=== PATIENT | female | born 1965 | race American Indian/Alaskan Native ===

== ENCOUNTER → 2017-04-30 | Outpatient (CLI) | payer OTHER ==
--- NOTE | 2017-04-30 19:13 | REP ---
LEFT WRIST, FOUR VIEWS: There is no evidence of an acute fracture, dislocation or intrinsic bone disease. IMPRESSION: No fracture or dislocation. Signed by Vladimir Gruber MD 05/01/2017 12:34 P
== END ==
LOC: M ADAMS 17:22
PROVIDERS: ATTEND Physician Assistant
DX: M25.532 Pain in left wrist (principal)

== ENCOUNTER → 2018-05-01 | Outpatient (REF) | payer BC | LOC: M LAB REF 15:59 | DX: M54.5 Low back pain (principal) ==

== ENCOUNTER → 2018-07-05 | Outpatient (REF) | payer BC | LOC: M SFHCADAM 19:31 | DX: Z12.4 Encounter for screening for malignant neoplasm of cervix (principal) | CPT/HCPCS: G0123 ==

== ENCOUNTER 2018-07-30 09:54 | Day surgery (SDC) | payer BC ==
[2018-07-30] MEDS: NS 1,000 ML IV (11:30)
[2018-07-30] MEDS ORDERED: LIDOCAINE 2% INJ 100 MG/5 ML SDV (FOR ANES.) As Ordered (11:51)
[2018-07-30] MEDS ORDERED: PROPOFOL 200 MG/20 ML VIAL As Ordered ×2 (11:51→12:01)
== END 2018-07-30 12:34 | disposition home or self-care (01) ==
LOC: M OPP 12:34
DX: Z12.11 Encounter for screening for malignant neoplasm of colon (principal)
CPT/HCPCS: 45378

== ENCOUNTER 2018-10-09 15:31 | Emergency (ER) | payer OTHER, BC ==
[~2018-10-09] VITALS: Ht 167.6 cm; Wt 77.3 kg
[~2018-10-09 15:31] MED LIST: ALEV220T26 PO; BIOT2500 PO; ESTRTAB11 PO; FOLI800C PO; GARC500T PO; MULTCAP PO; VARE05TA PO; VITA500T3 PO; ZANTTAB PO
--- NOTE | 2018-10-09 18:28 | REP ---
RIGHT ANKLE, FOUR VIEWS: HISTORY: Trauma. There is no acute fracture or dislocation. The joint space is normal in appearance. IMPRESSION: There is no acute fracture or dislocation. Electronically Signed by Nicholas Collins MD 10/09/2018 06:37 P
[2018-10-09] MEDS ORDERED: ROBA500T PO (18:30)
[2018-10-09 18:45] VITALS: BP 108/76
== END 2018-10-09 18:46 | disposition home or self-care (01) ==
LOC: M ED 15:31
DX: S93.401A Sprain of unspecified ligament of right ankle, initial encounter (principal); X50.1XXA Overexertion from prolonged static or awkward postures, initial encounter; Y92.9 Unspecified place or not applicable

== ENCOUNTER 2019-09-14 10:51 | Emergency (ER) | payer BC, OTHER ==
[~2019-09-14] VITALS: Ht 167.6 cm; Wt 76.3 kg
[~2019-09-14 10:51] MED LIST changes: +CYAN500T8 PO; +ROBA500T PO; -VITA500T3 PO; +ZANT150T40 PO; -ZANTTAB PO
[2019-09-14 11:57] LABS: BASO # 0.1 10^3/uL (0.0-0.2); BASO % 0.8 % (0.0-1.0); EOS # 0.1 10^3/uL (0.0-0.5); EOS % 1.3 % (0.0-3.0); HEMATOCRIT 42.3 % (36.0-47.0); HEMOGLOBIN 13.9 g/dl (12.0-15.5); LYMPH # 2.5 10^3/uL (1.5-5.0); LYMPH % 38.8 % (24.0-44.0); MEAN CORPUSCULAR HGB CONC 32.9 g/dl (32.0-36.5); MEAN CORPUSCULAR VOLUME 94.4 fl (80.0-96.0); MONO # 0.5 10^3/uL (0.0-0.8); MONO % 7.4 % (0.0-5.0); NEUTROPHILS # 3.3 10^3/uL (1.5-8.5); NEUTROPHILS % 51.4 % (36.0-66.0); PLATELET COUNT, AUTOMATED 255 10^3/uL (150-450); RED BLOOD COUNT 4.48 10^6/uL (4.00-5.40); WHITE BLOOD COUNT 6.4 10^3/uL (4.0-10.0)
[2019-09-14] MEDS ORDERED: NS 1,000 ML IV SCH (12:18)
[2019-09-14 12:25] LABS: ALBUMIN 3.7 GM/DL (3.2-5.2); ALT/SGPT 37 U/L (12-78); BILIRUBIN,DIRECT < 0.1 MG/DL (0.0-0.2); BILIRUBIN,TOTAL 0.4 MG/DL (0.2-1.0); BLOOD UREA NITROGEN 12 MG/DL (7-18); CARBON DIOXIDE LEVEL 27 MEQ/L (21-32); CHLORIDE LEVEL 108 MEQ/L (98-107); CREATININE FOR GFR 0.74 MG/DL (0.55-1.30); GLOMERULAR FILTRATION RATE > 60.0 (>51); GLUCOSE, FASTING 89 MG/DL (70-100); LIPASE 88 U/L (73-393); POTASSIUM SERUM 4.1 MEQ/L (3.5-5.1); SODIUM LEVEL 141 MEQ/L (136-145); TOTAL PROTEIN 6.7 GM/DL (6.4-8.2)
[2019-09-14] MEDS ORDERED: MORPHINE 2 MG/ML 1ML VIAL (J2270) IV ONE (12:30)
[2019-09-14] MEDS ORDERED: ONDANSETRON 4MG/2ML VIAL (J2405) IV ONE (12:30)
[2019-09-14 12:55] LABS: INR 1.01
--- NOTE | 2019-09-14 13:08 | REP ---
Clinical: Right lower quadrant pain. Technique: Axial noncontrast images from the lung bases to the pubic symphysis with coronal and sagittal re-formations. Findings: Lung bases are clear. Visualized heart and pericardium normal. Liver, spleen, pancreas, gallbladder, bilateral adrenal glands and kidneys are normal. The enteric system is without obstruction or acute inflammatory process. Normal terminal ileum, cecum and appendix identified in the right lower quadrant. Few scattered colonic diverticula noted without acute diverticulitis. Pelvis demonstrates normal bladder and age-appropriate uterus/adnexa. No ascites. No free air. No adenopathy. Abdominal aorta without aneurysm. Musculoskeletal structures are intact. Impression: No acute abdominopelvic pathology appreciated. Normal appearance to the kidneys. Normal right lower quadrant structures including appendix. Electronically Signed by Oliverio Gamboa MD 09/14/2019 01:00 P
[2019-09-14 13:46] VITALS: BP 106/64
--- NOTE | 2019-09-14 15:54 | ECGEPIP ---
[facility] - ED Test Date: 2019-09-14 Pat Name: LARNO WELCH Department: Room: - Gender: Female [employer] Consult[employer]: yareli : 1965 Requested By: ROX DOSS Order Number: [id number] Reading MD: Wander Martínez Measurements Intervals [place] Rate: 58 P: 72 W[place]: 137 QRS: 70 QRSD: 97 T: 67 QT: 435 QTc: 428 Interpretive Statements SINUS BRADYCARDIA INCOMPLETE RIGHT BUNDLE BRANCH BLOCK NO PRIORS FOR COMPARISON Electronically Signed on 09-14-2019 15:54:18 EST by Wander Martínez
== END 2019-09-14 13:52 | disposition home or self-care (01) ==
LOC: M ED 10:51
DX: R10.9 Unspecified abdominal pain (principal); I45.19 Other right bundle-branch block; R00.1 Bradycardia, unspecified; G89.4 Chronic pain syndrome; F17.200 Nicotine dependence, unspecified, uncomplicated; Z82.49 Family history of ischemic heart disease and other diseases of the circulatory system; Z79.899 Other long term (current) drug therapy; Z88.0 Allergy status to penicillin
CPT/HCPCS: 74176; 80048; 80076; 81001; 83690; 85025; 85610; 86850; 86900; 86901; 93005; 99284; J2270; J2405

== ENCOUNTER → 2019-09-15 | Outpatient (CLI) | payer OTHER ==
--- NOTE | 2019-09-15 14:34 | REPPI ---
Clinical: Fall. Pain. Technique: Neutral and frog lateral views of the right hip. Findings: Osseous structures, joint spaces, and surrounding soft tissues appear normal. No obvious acute fracture dislocation. No overt osteoarthritic degenerative findings noted. Surrounding soft tissues are unremarkable. Impression: Normal right hip radiographs. Electronically Signed by Oliverio Gamboa MD 09/15/2019 02:26 P
--- NOTE | 2019-09-15 14:36 | REPPI ---
Clinical: Trauma. Fall. Technique: AP, lateral, bilateral oblique and coned-down views of the lumbosacral spine. Findings: Alignment and lordosis maintained without acute fracture / compression injury or subluxation. Advanced focal degenerative disc osteophyte complex at L4-5 includes endplate sclerosis, marginal spurring, and near complete disc space obliteration. Moderate degenerative changes also appreciated at the L5-S1 level. Impression: 1. No acute fracture / compression injury or subluxation. 2. Degenerative disc disease at L4-5 and L5-S1. Electronically Signed by Oliverio Gamboa MD 09/15/2019 02:27 P
== END ==
LOC: M PLAIMG 13:57
PROVIDERS: ATTEND Nurse Practitioner Family
DX: R10.31 Right lower quadrant pain (principal); Z91.81 History of falling; M51.36 Other intervertebral disc degeneration, lumbar region

== ENCOUNTER → 2020-03-01 | Outpatient (REF) | payer OTHER ==
[2020-03-01 13:42] LABS: CHOLESTEROL RISK RATIO 3.803 (<5)
== END ==
LOC: M SFHCADAM 08:27
PROVIDERS: ATTEND Physician Assistant
DX: E78.00 Pure hypercholesterolemia, unspecified (principal)

== ENCOUNTER → 2020-08-05 | Outpatient (CLI) | payer OTHER ==
[~2020-08-05] MED LIST changes: +PRIL20TA2 PO
[2020-08-05 11:45] LABS: BASO % 0.4 % (0.0-1.0); EOS % 0.6 % (0.0-3.0); HEMATOCRIT 43.9 % (36.0-47.0); HEMOGLOBIN 14.2 g/dl (12.0-15.5); LYMPH # 2.3 10^3/uL (1.5-5.0); LYMPH % 42.5 % (24.0-44.0); MEAN CORPUSCULAR HEMOGLOBIN 29.6 pg (27.0-33.0); MEAN CORPUSCULAR HGB CONC 32.3 g/dl (32.0-36.5); MEAN CORPUSCULAR VOLUME 91.5 fl (80.0-96.0); MONO # 0.5 10^3/uL (0.0-0.8); MONO % 9.6 % (0.0-5.0); NEUTROPHILS # 2.5 10^3/uL (1.5-8.5); NEUTROPHILS % 46.7 % (36.0-66.0); PLATELET COUNT, AUTOMATED 228 10^3/uL (150-450); WHITE BLOOD COUNT 5.4 10^3/uL (4.0-10.0)
[2020-08-05 12:17] LABS: ALBUMIN 4.1 GM/DL (3.2-5.2); ALT/SGPT 59 U/L (12-78); BILIRUBIN,TOTAL 0.4 MG/DL (0.2-1.0); BLOOD UREA NITROGEN 12 MG/DL (7-18); CALCIUM LEVEL 9.1 MG/DL (8.5-10.1); CARBON DIOXIDE LEVEL 30 MEQ/L (21-32); CHLORIDE LEVEL 109 MEQ/L (98-107); CREATININE FOR GFR 0.77 MG/DL (0.55-1.30); GLOMERULAR FILTRATION RATE > 60.0 (>51); GLUCOSE, FASTING 90 MG/DL (70-100); LIPASE 81 U/L (73-393); POTASSIUM SERUM 4.4 MEQ/L (3.5-5.1); SODIUM LEVEL 143 MEQ/L (136-145); TOTAL PROTEIN 7.4 GM/DL (6.4-8.2)
== END ==
LOC: M PLALAB 09:59
PROVIDERS: ATTEND Physician Assistant
DX: R10.11 Right upper quadrant pain (principal)

== ENCOUNTER → 2020-08-05 | Outpatient (CLI) | payer OTHER ==
--- NOTE | 2020-08-05 11:13 | REP ---
INDICATION: R10.11 RUQ PAIN/R10.13 EPIGASTRIC PAIN COMPARISON: None. TECHNIQUE: Real time moses scale ultrasound examination using curved array transducer. FINDINGS: Liver is normal in contour, size, and echogenicity without focal hepatic lesions identified. Pancreas is incompletely evaluated due to interposed bowel gas. The gallbladder demonstrates normal wall thickening without pericholecystic fluid and no obvious gallstones. No biliary ductal dilatation is appreciated and the common bile duct measures 2.3 mm diameter. Right kidney is normal in reniform shape without hydronephrosis and measures 9.4 x 7.1 x 5.6 cm. No ascites in the visualized right upper quadrant. IMPRESSION: No obvious sonographic abnormalities are appreciated. <Electronically signed by Oliverio Gamboa > 08/05/20 1511
== END ==
LOC: M WHC 10:20
PROVIDERS: ATTEND Physician Assistant
DX: R10.11 Right upper quadrant pain (principal); R10.13 Epigastric pain

== ENCOUNTER 2020-08-06 11:18 | Emergency (ER) | payer OTHER ==
[~2020-08-06] VITALS: Ht 167.6 cm; Wt 83.3 kg
[~2020-08-06 11:18] MED LIST changes: -PRIL20TA2 PO
[2020-08-06] MEDS ORDERED: PRIL20TA2 PO (11:27)
[2020-08-06 11:57] LABS: BASO % 0.3 % (0.0-1.0); EOS # 0.1 10^3/uL (0.0-0.5); EOS % 0.8 % (0.0-3.0); HEMATOCRIT 44.6 % (36.0-47.0); HEMOGLOBIN 14.8 g/dl (12.0-15.5); LYMPH # 2.9 10^3/uL (1.5-5.0); LYMPH % 47.6 % (24.0-44.0); MEAN CORPUSCULAR HEMOGLOBIN 30.5 pg (27.0-33.0); MEAN CORPUSCULAR HGB CONC 33.2 g/dl (32.0-36.5); MONO # 0.5 10^3/uL (0.0-0.8); NEUTROPHILS # 2.6 10^3/uL (1.5-8.5); PLATELET COUNT, AUTOMATED 238 10^3/uL (150-450); RED BLOOD COUNT 4.85 10^6/uL (4.00-5.40)
[2020-08-06 12:29] LABS: BILIRUBIN,DIRECT 0.1 MG/DL (0.0-0.2); BILIRUBIN,TOTAL 0.3 MG/DL (0.2-1.0); TOTAL PROTEIN 7.1 GM/DL (6.4-8.2)
[2020-08-06 12:44] LABS: INR 0.91; PROTHROMBIN TIME 12.4 SECONDS (12.5-14.3)
[2020-08-06 12:45] LABS: PARTIAL THROMBOPLASTIN TIME 25.1 SECONDS (24.2-38.5)
[2020-08-06] MEDS ORDERED: KETOROLAC 30 MG/ML 1ML VIAL IV ONE (12:45)
[2020-08-06] MEDS ORDERED: NS 1,000 ML IV ONE (12:45)
[2020-08-06 12:48] LABS: D-DIMER QUANT 419.6 ng/ml (<500)
--- NOTE | 2020-08-06 13:16 | REP ---
INDICATION: RUQ pain. COMPARISON: 08/05/2020. TECHNIQUE: Real-time sonographic evaluation of right upper quadrant performed. FINDINGS: The gallbladder demonstrates no evidence of intraluminal sludge or calculi, wall thickening or pericholecystic fluid. There is no intrahepatic or extrahepatic biliary dilatation, common bile duct measures 3 mm in maximum diameter. The liver is enlarged measuring 20.8 cm in length. There is diffuse increased echotexture compatible with diffuse fibrofatty infiltration, with areas of sparing near the gallbladder. No gross liver mass is seen. Pancreas is grossly unremarkable but not optimally visualized due to overlying bowel gas. The right kidney demonstrates no hydronephrosis, with a normal size of 9.7 cm in length. No free fluid is seen. IMPRESSION: Mild hepatomegaly and diffuse fibrofatty infiltration of the liver. Otherwise negative right upper quadrant ultrasound. <Electronically signed by Vladimir Gruber > 08/06/20 1312
--- NOTE | 2020-08-06 14:12 | REP ---
INDICATION: pain with inspiration r/o pneumonia. COMPARISON: 03/09/2014 the latest prior TECHNIQUE: PA and lateral views FINDINGS: The superior mediastinal structures are midline. The cardiac silhouette is unremarkable in size, shape, and position. The diaphragmatic surfaces of the lungs are regular, and the costophrenic angles are clear. The pulmonary leslie are clear. The imaged osseous structures are intact. IMPRESSION: There is no acute cardiopulmonary disease. No change from the prior exam. <Electronically signed by Armaan Ramirez > 08/06/20 1290
[2020-08-06 14:22] VITALS: BP 123/78
== END 2020-08-06 14:32 | disposition home or self-care (01) ==
LOC: M ED 11:18
DX: K76.0 Fatty (change of) liver, not elsewhere classified (principal); R10.9 Unspecified abdominal pain; J44.9 Chronic obstructive pulmonary disease, unspecified; Z87.891 Personal history of nicotine dependence; Z79.899 Other long term (current) drug therapy; Z88.0 Allergy status to penicillin
CPT/HCPCS: 71046; 76705; 80047; 80076; 81001; 83690; 85025; 85379; 85610; 85730; 96361; 96374; 99284; J1885

== ENCOUNTER → 2020-12-10 | Outpatient (CLI) | payer OTHER ==
[~2020-12-10] MED LIST changes: +CYAN500T14 PO; -CYAN500T8 PO; +PRIL20TA2 PO
--- NOTE | 2020-12-10 10:22 | REP ---
INDICATION: GB DISEASE, RUQ PAIN, NAUSEA. COMPARISON: None. TECHNIQUE/RADIOTRACER AND DOSE: 6.6 mCi of Technetium-99m mebrofenin was injected and sequential anterior images are acquired. 65 minutes after the mebrofenin injection, the patient consumed 8 ounces Ensure and an additional 60 minutes of imaging was acquired. Regions of interest are plotted around the gallbladder. FINDINGS: The initial hepatocellular parenchymal uptake phase is normal and homogeneous. Intra- and extra-hepatic bile ducts are labeled by the 10-minute image. The gallbladder is first labeled on the 10-minute image. There is normal washout from the liver parenchyma into the gallbladder and small intestine on subsequent images. The gallbladder ejection fraction is 63%. Values greater than 35% are considered normal with this technique. IMPRESSION: Normal hepatobiliary scan and normal gallbladder ejection fraction. <Electronically signed by Jeff Saha > 12/10/20 1017
== END ==
LOC: M RAD 07:31
PROVIDERS: ATTEND Internal Medicine Gastroenterology
DX: K82.8 Other specified diseases of gallbladder (principal); R10.11 Right upper quadrant pain; R11.0 Nausea
CPT/HCPCS: 78227; A9537

== ENCOUNTER → 2020-12-29 | Outpatient (CLI) | payer OTHER | LOC: M LABSMTC 11:56 | PROVIDERS: ATTEND Anesthesiology | DX: Z01.812 Encounter for preprocedural laboratory examination (principal); Z20.822 Contact with and (suspected) exposure to COVID-19 ==

== ENCOUNTER 2021-01-03 13:46 | Day surgery (SDC) | payer OTHER ==
[~2021-01-03] VITALS: Ht 167.6 cm; Wt 86.6 kg
[~2021-01-03 13:46] MED LIST changes: +NS 1,000 ML IV ONE
[2021-01-03] MEDS ORDERED: LIDOCAINE 2% 100MG/5ML SDV (FOR ANES.) As Ordered ONE (16:14)
[2021-01-03] MEDS ORDERED: propofoL 200 MG/20 ML VIAL As Ordered ONE (16:14)
--- NOTE | 2021-01-03 16:21 | ROOR ---
Patient Name: Sadia Shaffer Procedure Date: 01/03/2021 4:09 PM Date of : 1965 Age: 55 Room: [facility] Gender: Female Note Status: Finalized Procedure: Upper GI endoscopy Indications: Heartburn, Chest pain (non cardiac) Providers: Claudio FELDMAN MD Referring MD: EVARISTO Vásquez Requesting Provider: Medicines: Monitored Anesthesia Care Complications: No immediate complications. Procedure: Pre-Anesthesia Assessment: - The heart rate, respiratory rate, oxygen saturations, blood pressure, adequacy of pulmonary ventilation, and response to care were monitored throughout the procedure. The Endoscope was introduced through the mouth, and advanced to the second part of duodenum. The upper GI endoscopy was accomplished without difficulty. The patient tolerated the procedure well. Findings: The esophagus was normal. The stomach was normal. The examined duodenum was normal. Impression: - Normal esophagus. - Normal stomach. - Normal examined duodenum. - No specimens collected. Recommendation: - Continue present medications. - Observe patient's clinical course. Procedure Code(s): --- Professional --- 50166, Esophagogastroduodenoscopy, flexible, transoral; diagnostic, including collection of specimen(s) by brushing or washing, when performed (separate procedure) Diagnosis Code(s): --- Professional --- R12, Heartburn R07.89, Other chest pain CPT copyright 2019 [employer]. All rights reserved. The codes documented in this report are preliminary and upon medical coder review may be revised to meet current compliance requirements. Claudio Feldman MD Claudio FELDMAN MD 01/03/2021 4:21:17 PM Electronically signed by Claudio FELDMAN MD Number of Addenda: 0 Note Initiated On: 01/03/2021 4:09 PM Estimated Blood Loss: Estimated blood loss: none.
[2021-01-03 16:50] VITALS: BP 134/73
== END 2021-01-03 17:00 | disposition home or self-care (01) ==
LOC: M OPP 13:46
PROVIDERS: ATTEND Internal Medicine Gastroenterology
DX: R07.89 Other chest pain (principal); K21.9 Gastro-esophageal reflux disease without esophagitis; K76.0 Fatty (change of) liver, not elsewhere classified; J44.9 Chronic obstructive pulmonary disease, unspecified; G47.30 Sleep apnea, unspecified; Z87.891 Personal history of nicotine dependence; Z79.899 Other long term (current) drug therapy; Z88.0 Allergy status to penicillin

== ENCOUNTER 2021-07-24 11:54 | Emergency (ER) | payer OTHER ==
[~2021-07-24] VITALS: Ht 167.6 cm; Wt 83.6 kg
[~2021-07-24 11:54] MED LIST changes: -NS 1,000 ML IV ONE
--- OUTSIDE RECORDS SUMMARY | 2021-07-24 12:03 | CCD ---
Author Author [facility] Organization [facility] Address Unknown Phone Unavailable Care Team Providers Care Hand I Thermal Cutter Name Role Phone Garcia, Nicole COMMAND AND CONTROL SYSTEMS INTEGRATOR Unavailable Unavailable Garcia, Nicole COMMAND AND CONTROL SYSTEMS INTEGRATOR Unavailable Unavailable Garcia, Nicole COMMAND AND CONTROL SYSTEMS INTEGRATOR Unavailable Unavailable Garcia, Nicole COMMAND AND CONTROL SYSTEMS INTEGRATOR Unavailable Unavailable Garcia, Nicole COMMAND AND CONTROL SYSTEMS INTEGRATOR Unavailable Unavailable Garcia, Nicole COMMAND AND CONTROL SYSTEMS INTEGRATOR Unavailable Unavailable Garcia, Nicole COMMAND AND CONTROL SYSTEMS INTEGRATOR Unavailable Unavailable Garcia, Nicole COMMAND AND CONTROL SYSTEMS INTEGRATOR Unavailable Unavailable Garcia, Nicole COMMAND AND CONTROL SYSTEMS INTEGRATOR Unavailable Unavailable Garcia, Nicole COMMAND AND CONTROL SYSTEMS INTEGRATOR Unavailable Unavailable Garcia, Nicole COMMAND AND CONTROL SYSTEMS INTEGRATOR Unavailable Unavailable Garcia, Nicole COMMAND AND CONTROL SYSTEMS INTEGRATOR Unavailable Unavailable Garcia, Nicole COMMAND AND CONTROL SYSTEMS INTEGRATOR Unavailable Unavailable PARISA FELDMAN MD Unavailable Unavailable PARISA FELDMAN MD Unavailable Unavailable PARISA FELDMAN MD Unavailable Unavailable PARISA FELDMAN MD Unavailable Unavailable PARISA FELDMAN MD Unavailable Unavailable REINDL, PARISA VALENCIA Unavailable Unavailable REINDL, PARISA VALENCIA Unavailable Unavailable REINDL, PARISA VALENCIA Unavailable Unavailable REINDL, PARISA VALENCIA Unavailable Unavailable REINDL, PARISA VALENCIA Unavailable Unavailable REINDL, PARISA VALENCIA Unavailable Unavailable REINDL, PARISA VALENCIA Unavailable Unavailable REINDL, PARISA VALENCIA Unavailable Unavailable REINDL, PARISA VALENCIA Unavailable Unavailable REINDL, PARISA VALENCIA Unavailable Unavailable REINDL, PARISA VALENCIA Unavailable Unavailable REINDL, PARISA VALENCIA Unavailable Unavailable REINDL, PARISA VALENCIA Unavailable Unavailable REINDL, PARISA VALENCIA Unavailable Unavailable REINDL, PARISA VALENCIA Unavailable Unavailable REINDL, PARISA VALENCIA Unavailable Unavailable REINDL, PARISA VALENCIA Unavailable Unavailable REINDL, PARISA VALENCIA Unavailable Unavailable REINDL, PARISA VALENCIA Unavailable Unavailable REINDL, PARISA VALENCIA Unavailable Unavailable REINDL, PARISA VALENCIA Unavailable Unavailable REINDL, PARISA VALENCIA Unavailable Unavailable REINDL, PARISA VALENCIA Unavailable Unavailable REINDL, PARISA VALENCIA Unavailable Unavailable REINDL, PARISA VALENCIA Unavailable Unavailable REINDL, PARISA VALENCIA Unavailable Unavailable REINDL, PARISA VALENCIA Unavailable Unavailable REINDL, PARISA VALENCIA Unavailable Unavailable REINDL, PARISA VALENCIA Unavailable Unavailable REINDL, PARISA VALENCIA Unavailable Unavailable REINDL, PARISA VALENCIA Unavailable Unavailable REINDL, PARISA VALENCIA Unavailable Unavailable REINDL, PARISA VALENCIA Unavailable Unavailable REINDL, PARISA VALENCIA Unavailable Unavailable REINDL, PARISA VALENCIA Unavailable Unavailable REINDL, PARISA VALENCIA Unavailable Unavailable REINDL, PARISA VALENCIA Unavailable Unavailable NEVILLE, DARY PA Unavailable Unavailable NEVILLE, DARY PA Unavailable Unavailable NEVILLE, DARY PA Unavailable Unavailable NEVILLE, DARY PA Unavailable Unavailable NEVILLE, DARY PA Unavailable Unavailable NEVILLE, DARY PA Unavailable Unavailable NEVILLE, DARY PA Unavailable Unavailable NEVILLE, DARY PA Unavailable Unavailable NEVILLE, DARY PA Unavailable Unavailable NEVILLE, DARY PA Unavailable Unavailable NEVILLE, DARY PA Unavailable Unavailable NEVILLE, DARY PA Unavailable Unavailable NEVILLE, DARY PA Unavailable Unavailable NEVILLE, DARY PA Unavailable Unavailable NEVILLE, DARY PA Unavailable Unavailable NEVILLE, DARY PA Unavailable Unavailable NEVILLE, DARY PA Unavailable Unavailable NEVILLE, DARY PA Unavailable Unavailable NEVILLE, DARY PA Unavailable Unavailable NEVILLE, DARY PA Unavailable Unavailable NEVILLE, DARY PA Unavailable Unavailable NEVILLE, DARY PA Unavailable Unavailable NEVILLE, DARY PA Unavailable Unavailable NEVILLE, DARY PA Unavailable Unavailable NEVILLE, DARY PA Unavailable Unavailable NEVILLE, DARY PA Unavailable Unavailable NEVILLE, DARY PA Unavailable Unavailable NEVILLE, DARY PA Unavailable Unavailable NEVILLE, DARY PA Unavailable Unavailable NEVILLE, DARY PA Unavailable Unavailable NEVILLE, DARY PA Unavailable Unavailable NEVILLE, ADRY PA Unavailable Unavailable NEVILLE, DARY PA Unavailable Unavailable NEVILLE, DARY PA Unavailable Unavailable NEVILLE, DARY PA Unavailable Unavailable NEVILLE, DARY PA Unavailable Unavailable Re-disclosure Warning The records that you are about to access may contain information from federally-assisted alcohol or drug abuse programs. If such information is present, then the following federally mandated warning applies: This information has been disclosed to you from records protected by federal confidentiality rules (42 CFR part 2). The federal rules prohibit you from making any further disclosure of this information unless further disclosure is expressly permitted by the written consent of the person to whom it pertains or as otherwise permitted by 42 CFR part 2. A general authorization for the release of medical or other information is NOT sufficient for this purpose. The Federal rules restrict any use of the information to criminally investigate or prosecute any alcohol or drug abuse patient.The records that you are about to access may contain highly sensitive health information, the redisclosure of which is protected by Article 27-F of the [facility] Public Health law. If you continue you may have access to information: Regarding HIV / AIDS; Provided by facilities licensed or operated by the [facility] Office of Mental Health; or Provided by the [facility] Office for People With Developmental Disabilities. If such information is present, then the following [facility] mandated warning applies: This information has been disclosed to you from confidential records which are protected by state law. State law prohibits you from making any further disclosure of this information without the specific written consent of the person to whom it pertains, or as otherwise permitted by law. Any unauthorized further disclosure in violation of state law may result in a fine or nursing home sentence or both. A general authorization for the release of medical or other information is NOT sufficient authorization for further disc losure. Family History Family Member Name Family Member Gender Family Member Status Date o f Status Description Data Source(s) Unknown Unknown Problem [facility] ([facility]) BROTHER Unknown Male Problem MEDENT ([facility]) Unknown Male Problem MED[facility] ([facility]) Encounters Encounter Providers Location Date Indications Data Source(s ) Unknown [address] [facility] [address] 11/25/2020 12:00:00 AM EST eCW1 ([facility]) Outpatient Attender: PARISA Anedrson/Irineo/Crow/Benjamin small 11/11/2020 09:45:00 AM EST [facility] ([facility]) TeleMedicine Phone E/M by Phys 11-20 Min [address] [place] [address] 08/31/2020 12:00:00 AM EST eCW1 ([facility]) Outpatient Attender: DARY barros 08/05/2020 07:15:00 AM EST MED[facility] ([facility]) Outpatient Attender: Nicole wynne 06/04/2020 10:45:00 AM EDT MED[facility] ([facility]) Immunizations Vaccine Date Status Description Data Source(s) COVID-19 VACC, MRNA(PFIZER)/PF 02/25/2021 12:00:00 AM EDT completed [facility] COVID-19 VACCINE Pfizer 02/25/2021 12:00:00 AM EDT completed [facility] Vaccine Series Complete: YESThis Data wa s Submitted to [facility] Via [employer]. COVID-19 VACC, MRNA(PFIZER)/PF 02/04/2021 12:00:00 AM EDT completed [facility] COVID-19 VACCINE Pfizer 02/04/2021 12:00:00 AM EDT completed [facility] Vaccine Series Complete: NOThis Data was Submitted to [facility] [employer]. Medications Medication Brand Name Start Date Product Form Dose Route Admi nistrative Instructions Pharmacy Instructions Status Indications Reaction Description Data Source(s) 40 mg 11/26/2020 12:00:00 AM EST capsule,delayed release (DR/EC) 60 TAKE ONE CAPSULE BY MOUTH TWICE A DAY BEFORE MEALS TAKE ONE CAPSULE BY MOUTH TWICE A DAY BEFORE MEALS SOLD: 06/28/2021 [facility] 1 gram 11/26/2020 12:00:00 AM EST tablet 90 TAKE ONE TABLET BY MOUTH THREE TIMES A DAY 30 MIN BEFORE MEALS TAKE ONE TABLET BY MOUTH THREE TIMES A D AY 30 MIN BEFORE MEALS SOLD: 04/27/2021 [facility] 40 mg 11/26/2020 12:00:00 AM EST capsule,delayed release (DR/EC) 60 TAKE ONE CAPSULE BY MOUTH TWICE A DAY BEFORE MEALS TAKE ONE CAPSULE BY MOUTH TWICE A DAY BEFORE MEALS SOLD: 11/27/2020 [facility] 40 mg 11/26/2020 12:00:00 AM EST capsule,delayed release (DR/EC) 60 TAKE ONE CAPSULE BY MOUTH TWICE A DAY BEFORE MEALS TAKE ONE CAPSULE BY MOUTH TWICE A DAY BEFORE MEALS SOLD: 01/29/2021 [facility] 1 gram 11/26/2020 12:00:00 AM EST tablet 90 TAKE ONE TABLET BY MOUTH THREE TIMES A DAY 30 MIN BEFORE MEALS TAKE ONE TABLET BY MOUTH THREE TIMES A D AY 30 MIN BEFORE MEALS SOLD: 01/29/2021 [facility] 1 gram 11/26/2020 12:00:00 AM EST tablet 90 TAKE ONE TABLET BY MOUTH THREE TIMES A DAY 30 MIN BEFORE MEALS TAKE ONE TABLET BY MOUTH THREE TIMES A D AY 30 MIN BEFORE MEALS SOLD: 11/27/2020 [facility] 40 mg 11/26/2020 12:00:00 AM EST capsule,delayed release (DR/EC) 60 TAKE ONE CAPSULE BY MOUTH TWICE A DAY BEFORE MEALS TAKE ONE CAPSULE BY MOUTH TWICE A DAY BEFORE MEALS SOLD: 04/27/2021 [facility] 40 mg 09/18/2020 12:00:00 AM EST capsule,delayed release (DR/EC) 60 TAKE 1 CAPSULE BY MOUTH BID30 MINUTES BEFORE MEAL TAKE 1 CAPSULE BY MOUTH BID30 MINUTES BEFORE MEAL SOLD: 09/18/2020 [facility] 1 gram 09/18/2020 12:00:00 AM EST tablet 90 TAKE 1 TABLET BY MOUTH ON A EMPTY STOMACH 30 MINUTES BEFORE EACH MEAL TAKE 1 TABLET BY MOUTH ON A EMPTY STOMACH 30 MINUTES BEFORE EACH MEAL SOLD: 09/18/2020 [facility] Prilosec 40 MG UNK 08/10/2020 12:00:00 AM EST active Prilosec 40 MG eCW1 ([facility]) Sucralfate 1000 MG Oral Tablet Sucralfate 1 GM Sucralfate 1 GM 08/10/2020 12:00:00 AM EST 1.0 {tablet_on_an_empty_stomach} active Sucralfate 1 GM eCW1 ([facility]) 40 mg 08/10/2020 12:00:00 AM EST capsule,delayed release (DR/EC) 60 TAKE 1 CAPSULE BY MOUTH TWO TIMES A DAY 30 MINUTES BEFORE MORNING MEAL TAKE 1 CAPSULE BY MOUTH TWO TIMES A DAY 30 MINUTES BEFORE MORNING MEAL SOLD: 08/10/2020 [facility] Pril[facility]c 40 MG UNK 08/10/2020 12:00:00 AM EST active Prilosec 40 MG eCW1 ([facility]) 1 gram 08/10/2020 12:00:00 AM EST tablet 90 TAKE 1 TABLET BY MOUTH ON EMPTY STOMACH 30 MINUTES BEFORE EACH MEAL TAKE 1 TABLET BY MOUTH ON EMPTY STOMACH 30 MINUTES BEFORE EACH MEAL SOLD: 08/10/2020 [facility] Sucralfate 1000 MG Oral Tablet Sucralfate 1 GM Sucralfate 1 GM 08/10/2020 12:00:00 AM EST 1.0 {tablet_on_an_empty_stomach} active Sucralfate 1 GM eCW1 ([facility]) Doxycycline Monohydrate 100 MG Oral Tablet Doxycycline Monoh ydrate 06/04/2020 12:00:00 AM EDT ORAL completed MEDENT ([facility] 100 mg 06/04/2020 12:00:00 AM EDT tablet 20 TAKE ONE TABLET BY MOUTH TWICE A DAY FOR 10 DAYS TAKE ONE TABLET BY MOUTH TWICE A DAY FOR 10 DAYS SOLD: 06/04/2020 [facility] Insurance Providers Payer name Policy type / Coverage type Policy ID Covered constitution party ID Covered constitution party's relationship to leary Policy Leary Plan Information [employer] () Workers Compensation [id number] Self [id number] El Insurance () Workers Compensation [id number] Self [id number] [employer] Insurance Workers Compensation [id number] Self [id number] El Ins And Benefit () Workers Compensation [id number] Self [id number] [place] Insurance (WC) Workers Compensation [id number] Self [id number] [employer] Workers Compensation [id number] Self [id number] [employer] Ins And Benefit (WC) Workers Compensation [id number] Self [id number] [place] [employer] And Benefit (WC) Workers Compensation [id number] Self [id number] BLUE CROSS [id number] SP [id number] BS [facility] Other 0 [id number] Self 0 ANSI-Commercial [id number] ANSI-Commercial [id number] [facility]/307 [id number] SP [id number] BLUE CROSS OTHER 1 [id number] SP [id number] [facility] BCBS Health Maintenance Organization (HMO) [id number] Self [id number] ANSI-Commercial [id number] ANSI-Commercial [id number] BCBS/Blue Card Commercial [id number] Self [id number] SELF PAY UNAVAILABLE UNAVAILA BLE FIRST NIAGRA RISK MANAGE O [id number] S [id number] [facility] O [id number] S 1 [id number] FIRST [place] RISK MGMT [id number] SP [id number] EL INS [id number] SP [id number] EL INSURANCE [id number] SP [id number] SP [id number] BCBS [place] PPO 302/307 [id number] SP [id number] EXCELLUS BCBS P [id number] S [id number] [place] [id number] SP [id number] [employer] HL[employer] [id number] SP [id number] WELLNESS CONNECTION [id number] SP [id number] [employer] [id number] SP [id number] [employer] HL[employer] [id number] SP [id number] FIRST [place] RISK MGMT [id number] SP [id number] BCBS [place] PPO 302/307 [id number] SP [id number] ANSI-Commercial [id number] ANSI-Commercial [id number] BCBS [place] PPO 302/307 [id number] SP [id number] ANSI-Commercial [id number] ANSI-Commercial [id number] Problems, Conditions, and Diagnoses No Information Surgeries/Procedures Procedure Description Date Indications Data Source(s) Endoscopy Upper GI Complex Diagnostic 01/03/2021 12:00 :00 AM EDT MED[facility] ([facility] ) Results ID Date Data Source [id number] 12/29/2020 12:15:00 PM EDT [facility] Name Value Range Interpretation Code Description Data Britney rce(s) Supporting Document(s) SARS-CoV-2 (COVID-19) RNA [Presence] in Respiratory specimen by GERRY with probe detection Not Detected [facility] This lab was ordered by [facility] and reported by [employer] ID Date Data Source [id number] 11/04/2020 12:00:00 AM EST [facility] Name Value Range Interpretation Code Description Data Britney rce(s) Supporting Document(s) SARS-CoV2 Rapid Antigen Negative [facility] This lab was reported by [facility] re. ID Date Data Source [id number] 08/05/2020 10:15:00 AM EST MEDENT ([facility]) Name Value Range Interpretation Code Description Data Britney rce(s) Supporting Document(s) Lipoprotein lipase [Enzymatic activity/volume] in Serum or Plasm a 81 U/L 73-393 MED[facility] ([facility]) ID Date Data Source [id number] 08/05/2020 10:15:00 AM EST MED[facility] ([facility]) Name Value Range Interpretation Code Description Data Britney rce(s) Supporting Document(s) Glucose, Fasting 90 mg/dL 70-100 MED[facility] ([facility]) Glomerular Filtration Rate Laboratory test result MEDENT ([facility]) <content>Units are mL/min/1.73 m2</content>
<content></content>
<content>Chronic Kidney Disease Staging per NKF:</content>
<content></content>
<content>Stage I & II GFR >=60 Normal to Mildly Decreased</content>
<content>Stage III GFR 30-59 Moderately Decreased</content>
<content>Stage IV GFR 15-29 Severely Decreased</content>
<content>Stage V GFR <15 Very Little GFR Left</content>
<content>ESRD GFR <15 on GAMING DEPARTMENT HEAD</content>
<content></content> Creatinine For GFR 0.77 mg/dL 0.55-1.30 MEDENT ([facility]) Blood Urea Nitrogen 12 mg/dL 7-18 MED[facility] ([facility]) Carbon Dioxide Level 30 meq/L 21-32 [facility]) Chloride Level 109 meq/L 98-107 MED[facility] ([facility]) Potassium Serum 4.4 meq/L 3.5-5.1 MEDENT ([facility]) Sodium Level 143 meq/L 136-145 MED[facility] ([facility]) Ast/Sgot 31 U/L 7-37 MEDENT ([facility]) Anion Gap 4 meq/L 8-16 MED[facility] ([facility]) Calcium Level 9.1 mg/dL 8.5-10.1 MED[facility] ([facility]) Bilirubin,Total 0.4 mg/dL 0.2-1.0 MEDENT ([facility]) Alt/SGPT 59 U/L 12-78 MEDENT ([facility]) Alkaline Phosphatase 86 U/L 45-117 [facility] ( [facility]) Albumin 4.1 GM/DL 3.2-5.2 MEDENT ([facility]) Total Protein 7.4 GM/DL 6.4-8.2 MED[facility] ([facility]) Albumin/Globulin Ratio 1.2 1.2-2.2 MED[facility] ([facility]) ID Date Data Source [id number] 08/05/2020 10:15:00 AM EST MEDENT ([facility]) Name Value Range Interpretation Code Description Data Britney rce(s) Supporting Document(s) Hemoglobin 14.2 g/dL 12.0-15.5 MED[facility] ([facility], [facility]) White Blood Count 5.4 10 4.0-10.0 MEDENT ([facility], [facility]) Red Blood Count 4.80 10 4.00-5.40 MED[facility] ([facility]) Mean Corpuscular Hemoglobin 29.6 pg 27.0-33.0 MED[facility] ([facility]) Mean Corpuscular Volume 91.5 fl 80.0-96.0 M EDENT ([facility], [facility]) Hematocrit 43.9 % 36.0-47.0 MED[facility] ([facility]) Platelet Count, Automated 228 10 150-450 MED[facility] ([facility]) Red Cell Distribution Width 11.6 % 11.5-14.5 [facility] ([facility]) Mean Corpuscular HGB Conc 32.3 g/dL 32.0-36.5 MED[facility] ([facility]) Dundy % 9.6 % 0.0-5.0 MEDENT ([facility], [facility]) Lymph % 42.5 % 24.0-44.0 MED[facility] ([facility], [facility]) Neutrophils % 46.7 % 36.0-66.0 MED[facility] ([facility]) Baso % 0.4 % 0.0-1.0 MED[facility] ([facility]) Immature Granulocyte % 0.2 % 0-3.0 MED[facility] ([facility]) Eos % 0.6 % 0.0-3.0 MEDENT ([facility]) Lymph # 2.3 10 1.5-5.0 MED[facility] ([facility]) Neutrophils # 2.5 10 1.5-8.5 MEDENT ([facility], [facility]) Nucleated Red Blood Cell % 0.0 % 0-0 MED ENT ([facility]) Eos # 0.0 10 0.0-0.5 MEDENT ([facility]) Dundy # 0.5 10 0.0-0.8 MED[facility] ([facility]) Baso # 0.0 10 0.0-0.2 MED[facility] ([facility]) Procedure Social History Code Duration Value Status Description Data Source(s ) Smoking 08/31/2020 12:00:00 AM EST Former Smoker completed Former Smoker [facility] ([facility]) Smoking 08/31/2020 12:00:00 AM EST Former Smoker completed Former Smoker [facility] ([facility]) Vital Signs ID Date Data Source UNK Name Value Range Interpretation Code Description Data Source(s) Systolic blood pressure 147 mm[Hg] 147 mm[Hg] [facility] Body surface area Derived from formula 1.97 m2 1.97 m2 [facility] ([facility]) Diastolic blood pressure 77 mm[Hg] 77 mm[Hg] [facility] ([facility]) Body height 66 [in_i] 66 [in_i] [facility] ([facility]) 5'6" Body weight 193.00 [lb_av] 193.00 [lb_av] [facility] Body mass index (BMI) [Ratio] 31.1 kg/m2 31.1 k g/m2 [facility] ([facility]) [place] body weight 130 [lb_av] 130 [lb_av] MED[facility] T ([facility]) Body weight 87.545 kg 87.545 kg [facility] ([facility]) Body height 66 [in_i] 66 [in_i] [facility] ([facility]) 5'6" Body mass index (BMI) [Ratio] 27.4 kg/m2 27.4 k g/m2 [facility] Body temperature 98.4 [degF] 98.4 [degF] [facility] ([facility] Body weight 170.00 [lb_av] 170.00 [lb_av] MED[facility] T ([facility]) Systolic blood pressure 115 mm[Hg] 115 mm[Hg] M ED[facility] ([facility]) Diastolic blood pressure 80 mm[Hg] 80 mm[Hg] [facility] ([facility]) Heart rate 82 /min 82 /min [facility] ([facility]) Respiratory rate 16 /min 16 /min [facility] ( [facility]) Oxygen saturation in Arterial blood by Pulse oximetry 99 % 99 % [facility] ([facility]) Heart rate 79 /min 79 /min [facility] ([facility]) Oxygen saturation in Arterial blood by Pulse oximetry 99 % 99 % [facility] ([facility]) Systolic blood pressure 114 mm[Hg] 114 mm[Hg] M EDENT ([facility]) Diastolic blood pressure 80 mm[Hg] 80 mm[Hg] MEDENT ([facility], [facility]) Respiratory rate 16 /min 16 /min MEDENT ( [facility], [facility]) Body temperature 98.7 [degF] 98.7 [degF] MEDENT ([facility], [facility]) Body weight 168.00 [lb_av] 168.00 [lb_av] MEDEN T ([facility], [facility]) Body height 66 [in_i] 66 [in_i] MEDENT ([facility], [facility]) 5'6" Body mass index (BMI) [Ratio] 27.1 kg/m2 27.1 k g/m2 [facility] ([facility], [facility]) Patient Treatment Plan of Care Planned Activity Planned Date Details Description Data Source (s) Sucralfate 1000 MG Oral Tablet 08/10/2020 12:00:00 AM EST eCW1 ([facility]) Prilosec 40 MG 08/10/2020 12:00:00 AM EST eCW1 ([facility]) Prilosec 40 MG 08/10/2020 12:00:00 AM EST eCW1 ([facility]) Sucralfate 1000 MG Oral Tablet 08/10/2020 12:00:00 AM EST eCW1 ([facility])
--- NOTE | 2021-07-24 12:28 | REP ---
INDICATION: pain after fall. COMPARISON: Left wrist 04/30/2017 TECHNIQUE: Two views FINDINGS: The shafts of the radius and ulna were intact. There is an ulna minus variant evident. The carpal bones and their joint spaces are grossly intact. Visualized metacarpals intact. At the elbow there is a small ossific density with sclerotic margins at the lateral epicondyle that may reflect some old epicondylitis. This would not be an acute avulsion. Radial head and capitellum align normally. Coronoid process of the ulna and visualized portion of the distal humerus otherwise unremarkable. IMPRESSION: 1. There is no evidence of an acute fracture or avulsion. There is evidence of a ossific density at the lateral epicondyle that may be related to old injury. It has smooth sclerotic margins, not acute. 2. Ulna minus variant. No other finding. <Electronically signed by Cristian Wu > 07/24/21 [id number]
--- OUTSIDE RECORDS SUMMARY | 2021-07-24 13:51 | CCD ---
Author Author [facility] Organization [facility] Address Unknown Phone Unavailable Care Team Providers Care Folder And Notcher Name Role Phone Garcia, Nicole BOX CHIPPER Unavailable Unavailable Garcia, Nicole BOX CHIPPER Unavailable Unavailable Garcia, Nicole BOX CHIPPER Unavailable Unavailable Garcia, Nicole BOX CHIPPER Unavailable Unavailable Garcia, Nicole BOX CHIPPER Unavailable Unavailable Garcia, Nicole BOX CHIPPER Unavailable Unavailable Garcia, Nicole BOX CHIPPER Unavailable Unavailable Garcia, Nciole BOX CHIPPER Unavailable Unavailable Garcia, Nicole BOX CHIPPER Unavailable Unavailable Garcia, Nicole BOX CHIPPER Unavailable Unavailable Garcia, Nicole BOX CHIPPER Unavailable Unavailable Garcia, Nicole BOX CHIPPER Unavailable Unavailable Garcia, Nicole BOX CHIPPER Unavailable Unavailable PARISA FELDMAN MD Unavailable Unavailable [...] is protected by Article 27-F of the [facility] Public Health law. If you continue you may have access to information: Regarding HIV / AIDS; Provided by facilities licensed or operated by the [facility] Office of Mental Health; or Provided by the [facility] Office for People With Developmental Disabilities. If such information is present, then the following [facility] mandated warning applies: This information has been [...] law may result in a fine or longterm sentence or both. A general authorization for [...] Date Indications Data Source(s ) Unknown [address] [facility] [address] 11/25/2020 12:00:00 AM EST eCW1 ([facility]) Outpatient Attender: APRISA Anderson/Irineo/Crow/Benjamin small 11/11/2020 09:45:00 AM EST MEDENT ([facility]) TeleMedicine Phone E/M by Phys 11-20 Min [address] [place] [address] 08/31/2020 12:00:00 AM EST eCW1 ([facility]) Outpatient Attender: DARY barros 08/05/2020 07:15:00 AM EST MED[facility] ([facility]) Outpatient Attender: Nicole wynne 06/04/2020 10:45:00 AM EDT MED[facility] ([facility]) Immunizations Vaccine Date Status Description Data Source(s) COVID-19 VACC, MRNA(PFIZER)/PF 02/25/2021 12:00:00 AM EDT completed [facility] COVID-19 VACCINE Pfizer 02/25/2021 12:00:00 AM EDT completed [facility] Vaccine Series Complete: YESThis Data wa s Submitted to [facility]. COVID-19 VACC, MRNA(PFIZER)/PF 02/04/2021 12:00:00 AM EDT completed [facility] COVID-19 VACCINE Pfizer 02/04/2021 12:00:00 AM EDT completed [facility] Vaccine Series Complete: NOThis Data was Submitted to [facility]. Medications Medication Brand Name Start Date Product [...] AM EST active Prilosec 40 MG eCW1 ([facility]) Sucralfate 1000 MG Oral Tablet Sucralfate 1 GM Sucralfate 1 GM 08/10/2020 12:00:00 AM EST 1.0 {tablet_on_an_empty_stomach} active Sucralfate 1 GM eCW1 ([facility]) 40 mg 08/10/2020 12:00:00 AM EST capsule,delayed release (DR/EC) 60 TAKE 1 CAPSULE BY MOUTH TWO TIMES A DAY 30 MINUTES BEFORE MORNING MEAL TAKE 1 CAPSULE BY MOUTH TWO TIMES A DAY 30 MINUTES BEFORE MORNING MEAL SOLD: 08/10/2020 [facility] Prilosec 40 MG UNK 08/10/2020 12:00:00 AM EST active Prilosec 40 MG eCW1 ([facility]) 1 gram 08/10/2020 12:00:00 AM EST tablet 90 TAKE 1 TABLET BY MOUTH ON EMPTY STOMACH 30 MINUTES BEFORE EACH MEAL TAKE 1 TABLET BY MOUTH ON EMPTY STOMACH 30 MINUTES BEFORE EACH MEAL SOLD: 08/10/2020 [facility] Sucralfate 1000 MG Oral Tablet Sucralfate 1 GM Sucralfate 1 GM 08/10/2020 12:00:00 AM EST 1.0 {tablet_on_an_empty_stomach} active Sucralfate 1 GM eCW1 ([facility]) Doxycycline Monohydrate 100 MG Oral Tablet Doxycycline Monoh ydrate 06/04/2020 12:00:00 AM EDT ORAL completed MED[facility] ([facility], [facility]) 100 mg 06/04/2020 12:00:00 AM EDT tablet 20 TAKE ONE TABLET BY MOUTH TWICE A DAY FOR 10 DAYS TAKE ONE TABLET BY MOUTH TWICE A DAY FOR 10 DAYS SOLD: 06/04/2020 [facility] Insurance Providers Payer name Policy type / Coverage type Policy ID Covered democrat ID Covered democrat's relationship to leary Policy Leary Plan Information [employer] Ins () Workers Compensation [id number] Self [id number] El Insurance () Workers Compensation [id number] Self [id number] El Insurance Workers Compensation [id number] Self [id number] El Ins And Benefit () Workers Compensation [id number] Self [id number] [place] Insurance (WC) Workers Compensation [id number] Self [id number] [employer] Insurance Workers Compensation [id number] Self [id number] El Ins And Benefit (WC) Workers Compensation [id number] Self [id number] [place] [employer] And Benefit (WC) Workers Compensation [id number] Self [id number] BLUE CROSS [id number] SP [id number] BS [facility] Other 0 [id number] Self 0 ANSI-Commercial [id number] ANSI-Commercial [id number] [facility]/307 [id number] SP [id number] BLUE CROSS OTHER 1 [id number] SP [id number] [facility] BCBS Health Maintenance Organization (HMO) [id number] Self [id number] ANSI-Commercial [id number] ANSI-Commercial [id number] BCBS/Blue Card Commercial [id number] Self [id number] SELF PAY UNAVAILABLE UNAVAILA BLE FIRST NIAGRA RISK MANAGE O [id number] S [id number] [facility] O [id number] S 1 [id number] FIRST [place] RISK MGMT [id number] SP [id number] EL INS [id number] SP [id number] EL INSURANCE [id number] SP [id number] SP [id number] BCBS [place] PPO 302/307 [id number] SP [id number] EXCELL[place] BCBS P [id number] S [id number] [place] [id number] SP [id number] [employer]ITAL DIST [employer]ICI[employer] HLTH [id number] SP [id number] WELL[place] CONNECTION [id number] SP [id number] [employer] [id number] SP [id number] [employer] HLTH [id number] SP [id number] FIRST [place] RISK MGMT [id number] SP [id number] BCBS [place] PPO 302/307 [id number] SP [id number] ANSI-Commercial [id number] ANSI-Commercial [id number] BCBS [place] PPO 302/307 [id number] SP [id number] ANSI-Commercial [id number] ANSI-Commercial [id number] Problems, Conditions, and Diagnoses No Information Surgeries/Procedures Procedure Description Date Indications Data Source(s) Endoscopy Upper GI Complex Diagnostic 01/03/2021 12:00 :00 AM EDT [facility] ([facility], ) Results ID Date Data Source [id number] 12/29/2020 12:15:00 PM EDT [facility] Name Value Range Interpretation Code Description Data Britney rce(s) Supporting Document(s) SARS-CoV-2 (COVID-19) RNA [Presence] in Respiratory specimen by GERRY with probe detection Not Detected [facility] This lab was ordered by [facility] and reported by [employer] ID Date Data Source [id number] 11/04/2020 12:00:00 AM EST [facility] Name Value Range Interpretation Code Description Data Britney rce(s) Supporting Document(s) SARS-CoV2 Rapid Antigen Negative [facility] This lab was reported by [facility] re. ID Date Data Source [id number] 08/05/2020 10:15:00 AM EST MEDENT ([facility]) Name Value Range Interpretation Code Description Data Britney rce(s) Supporting Document(s) Lipoprotein lipase [Enzymatic activity/volume] in Serum or Plasm a 81 U/L 73-393 MEDENT ([facility], [facility]) ID Date Data Source [id number] 08/05/2020 10:15:00 AM EST MED[facility] ([facility]) Name Value Range Interpretation Code Description Data Britney rce(s) Supporting Document(s) Glucose, Fasting 90 mg/dL 70-100 MED[facility] ([facility]) Glomerular Filtration Rate Laboratory test result MEDENT ([facility]) <content>Units are mL/min/1.73 m2</content>
<content></content>
<content>Chronic Kidney Disease Staging per NKF:</content>
<content></content>
<content>Stage I & II GFR >=60 Normal to Mildly Decreased</content>
<content>Stage III GFR 30-59 Moderately Decreased</content>
<content>Stage IV GFR 15-29 Severely Decreased</content>
<content>Stage V GFR <15 Very Little GFR Left</content>
<content>ESRD GFR <15 on RESIDENTIAL GAS HEAT TECHNICIAN</content>
<content></content> Creatinine For GFR 0.77 mg/dL 0.55-1.30 MEDENT ([facility], [facility]) Blood Urea Nitrogen 12 mg/dL 7-18 [facility] ([facility], [facility]) Carbon Dioxide Level 30 meq/L 21-32 [facility] [place]) Chloride Level 109 meq/L 98-107 MEDENT ([facility] [place], [facility]) Potassium Serum 4.4 meq/L 3.5-5.1 MED[facility] ([facility] [place], [facility]) Sodium Level 143 meq/L 136-145 MED[facility] ([facility] [place], [facility]) Ast/Sgot 31 U/L 7-37 MED[facility] ([facility], [facility]) Anion Gap 4 meq/L 8-16 MED[facility] ([facility], [facility]) Calcium Level 9.1 mg/dL 8.5-10.1 MEDENT ([facility] [place], [facility]) Bilirubin,Total 0.4 mg/dL 0.2-1.0 MED[facility] ([facility] [place], [facility]) Alt/SGPT 59 U/L 12-78 MED[facility] ([facility], [facility]) Alkaline Phosphatase 86 U/L 45-117 [facility] ( [facility] [place]) Albumin 4.1 GM/DL 3.2-5.2 MEDENT ([facility], [facility]) Total Protein 7.4 GM/DL 6.4-8.2 MED[facility] ([facility] [place], [facility]) Albumin/Globulin Ratio 1.2 1.2-2.2 MED[facility] ([facility], [facility]) ID Date Data Source [id number] 08/05/2020 10:15:00 AM EST MEDENT ([facility], [facility]) Name Value Range Interpretation Code Description Data Britney rce(s) Supporting Document(s) Hemoglobin 14.2 g/dL 12.0-15.5 MEDENT ([facility], [facility]) White Blood Count 5.4 10 4.0-10.0 MEDENT ([facility], [facility]) Red Blood Count 4.80 10 4.00-5.40 MEDENT ([facility], [facility]) Mean Corpuscular Hemoglobin 29.6 pg 27.0-33.0 MED[facility] ([facility], [facility]) Mean Corpuscular Volume 91.5 fl 80.0-96.0 M EDENT ([facility], [facility]) Hematocrit 43.9 % 36.0-47.0 [facility] Platelet Count, Automated 228 10 150-450 MEDENT ([facility], [facility]) Red Cell Distribution Width 11.6 % 11.5-14.5 MED[facility] ([facility], [facility]) Mean Corpuscular HGB Conc 32.3 g/dL 32.0-36.5 MEDENT ([facility], [facility]) Norman % 9.6 % 0.0-5.0 MEDENT ([facility], [facility]) Lymph % 42.5 % 24.0-44.0 MEDENT ([facility], [facility]) Neutrophils % 46.7 % 36.0-66.0 MEDENT ([facility], [facility]) Baso % 0.4 % 0.0-1.0 MEDENT ([facility], [facility]) Immature Granulocyte % 0.2 % 0-3.0 MEDENT ([facility], [facility]) Eos % 0.6 % 0.0-3.0 MEDENT ([facility], [facility]) Lymph # 2.3 10 1.5-5.0 MEDENT ([facility], [facility]) Neutrophils # 2.5 10 1.5-8.5 MEDENT ([facility], [facility]) Nucleated Red Blood Cell % 0.0 % 0-0 MED ENT ([facility], [facility]) Eos # 0.0 10 0.0-0.5 MEDENT ([facility], [facility]) Norman # 0.5 10 0.0-0.8 MEDENT ([facility], [facility]) Baso # 0.0 10 0.0-0.2 MEDENT ([facility], [facility]) Procedure Social History Code Duration Value Status Description Data Source(s ) Smoking 08/31/2020 12:00:00 AM EST Former Smoker completed Former Smoker eC ([facility]) Smoking 08/31/2020 12:00:00 AM EST Former Smoker completed Former Smoker [facility] ([facility]) Vital Signs ID Date Data Source UNK Name Value Range Interpretation Code Description Data Source(s) Body surface area Derived from formula 1.97 m2 1.[address] [facility] Systolic blood pressure 147 mm[Hg] 147 mm[Hg] [facility] Diastolic blood pressure 77 mm[Hg] 77 mm[Hg] [facility] ([facility]) Body height 66 [in_i] 66 [in_i] [facility] ([facility]) 5'6" Body weight 193.00 [lb_av] 193.00 [lb_av] [facility] ([facility]) Body mass index (BMI) [Ratio] 31.1 kg/m2 31.1 k g/m2 [facility] ([facility]) [place] body weight 130 [lb_av] 130 [lb_av] [facility] Body weight 87.545 kg 87.545 kg [facility] ([facility]) Systolic blood pressure 115 mm[Hg] 115 mm[Hg] M EDENT ([facility]) Diastolic blood pressure 80 mm[Hg] 80 mm[Hg] [facility] Heart rate 82 /min 82 /min [facility] ([facility]) Respiratory rate 16 /min 16 /min MEDENT ( [facility] [place], [facility]) Oxygen saturation in Arterial blood by Pulse oximetry 99 % 99 % MEDENT ([facility], [facility]) Body temperature 98.4 [degF] 98.4 [degF] MEDENT ([facility], [facility]) Body weight 170.00 [lb_av] 170.00 [lb_av] MEDEN T ([facility], [facility]) Body height 66 [in_i] 66 [in_i] MEDENT ([facility], [facility]) 5'6" Body mass index (BMI) [Ratio] 27.4 kg/m2 27.4 k g/m2 MEDENT ([facility], [facility]) Heart rate 79 /min 79 /min MED[facility] ([facility] [place], [facility]) Oxygen saturation in Arterial blood by Pulse oximetry 99 % 99 % MED[facility] ([facility], [facility]) Systolic blood pressure 114 mm[Hg] 114 mm[Hg] EDENT ([facility], [facility]) Diastolic blood pressure 80 mm[Hg] 80 mm[Hg] MEDENT ([facility], [facility]) Respiratory rate 16 /min 16 /min MEDENT ( [facility], [facility]) Body temperature 98.7 [degF] 98.7 [degF] MEDENT ([facility], [facility]) Body weight 168.00 [lb_av] 168.00 [lb_av] MEDEN T ([facility], [facility]) Body height 66 [in_i] 66 [in_i] MEDENT ([facility], [facility]) 5'6" Body mass index (BMI) [Ratio] 27.1 kg/m2 27.1 k g/m2 [facility] ([facility], [facility]) Patient Treatment Plan of Care Planned Activity Planned Date Details Description Data Source (s) Sucralfate 1000 MG Oral Tablet 08/10/2020 12:00:00 AM EST eCW1 ([facility]) Prilosec 40 MG 08/10/2020 12:00:00 AM EST eCW1 ([facility]) Prilosec 40 MG 08/10/2020 12:00:00 AM EST eCW1 ([facility]) Sucralfate 1000 MG Oral Tablet 08/10/2020 12:00:00 AM EST eCW1 ([facility])
[2021-07-24 13:58] VITALS: BP 123/71
== END 2021-07-24 14:14 | disposition home or self-care (01) ==
LOC: M ED 11:54
DX: S50.812A Abrasion of left forearm, initial encounter (principal); W19.XXXA Unspecified fall, initial encounter; Y92.89 Other specified places as the place of occurrence of the external cause; Y93.9 Activity, unspecified; Y99.0 Civilian activity done for income or pay; J44.9 Chronic obstructive pulmonary disease, unspecified; G47.30 Sleep apnea, unspecified; Z79.899 Other long term (current) drug therapy; Z88.0 Allergy status to penicillin

== ENCOUNTER → 2021-11-11 | Outpatient (CLI) | payer OTHER ==
[~2021-11-11] MED LIST changes: +BIOTCAP PO; +FOLI400T5 PO; +NAPR-837 PO; +SUCR1TAB56 PO; +VITA500T40 PO; +VITMTA PO
== END ==
LOC: M PLARAD 11:55
PROVIDERS: ATTEND Physician Assistant
DX: R20.2 Paresthesia of skin (principal)

== ENCOUNTER → 2022-01-10 | Outpatient (REF) | payer OTHER ==
[2022-01-10 13:07] LABS: CHOLESTEROL LEVEL 215 MG/DL (<200); CHOLESTEROL RISK RATIO 4.215 (<5); FOLATE > 24.0 NG/ML; FREE T4 0.84 NG/DL (0.76-1.46); HDL CHOLESTEROL 51 MG/DL (>40); LDL CHOLESTEROL 134 MG/DL (<100); NON-HDL-C 164 MG/DL; TRIGLYCERIDES LEVEL 149 MG/DL (<150)
[2022-01-10 17:09] LABS: VITAMIN B12 LEVEL 898 PG/ML
== END ==
LOC: M SFHCADAM 09:03
PROVIDERS: ATTEND Physician Assistant
DX: Z13.220 Encounter for screening for lipoid disorders (principal); R20.2 Paresthesia of skin; Z12.4 Encounter for screening for malignant neoplasm of cervix
CPT/HCPCS: 80061; 82607; 82746; 84439; 84443; 87624; G0123

== ENCOUNTER → 2022-11-06 | Outpatient (CLI) | payer BC | LOC: M WUC 15:51 | PROVIDERS: ATTEND Physician Assistant | DX: S93.402A Sprain of unspecified ligament of left ankle, initial encounter (principal); X58.XXXA Exposure to other specified factors, initial encounter; Y92.9 Unspecified place or not applicable; Y93.9 Activity, unspecified; Y99.9 Unspecified external cause status ==

== ENCOUNTER → 2023-01-12 | Outpatient (CLI) | payer BC | LOC: M WHC 08:08 | PROVIDERS: ATTEND Physician Assistant | DX: Z12.31 Encounter for screening mammogram for malignant neoplasm of breast (principal); Z53.9 Procedure and treatment not carried out, unspecified reason ==

== ENCOUNTER → 2023-01-13 | Outpatient (REF) | payer BC | LOC: M SFHCADAM 16:11 | PROVIDERS: ATTEND Physician Assistant | DX: F17.211 Nicotine dependence, cigarettes, in remission (principal); J44.9 Chronic obstructive pulmonary disease, unspecified; Z53.8 Procedure and treatment not carried out for other reasons ==

== ENCOUNTER → 2023-01-16 | Outpatient (CLI) | payer BC | LOC: M WHC 14:27 | PROVIDERS: ATTEND Physician Assistant | DX: Z12.31 Encounter for screening mammogram for malignant neoplasm of breast (principal) ==

== ENCOUNTER → 2023-02-07 | Outpatient (CLI) | payer BC, SELFPAY | LOC: M CARPUL 08:54 | PROVIDERS: ATTEND Physician Assistant | DX: J44.9 Chronic obstructive pulmonary disease, unspecified (principal) ==

== ENCOUNTER → 2023-04-02 | Outpatient (CLI) | payer BC ==
[~2023-04-02] MED LIST changes: +METHACHOLINE KIT INH ONE
== END ==
LOC: M CARPUL 03-07 14:44
PROVIDERS: ATTEND Physician Assistant
DX: J44.9 Chronic obstructive pulmonary disease, unspecified (principal)
CPT/HCPCS: 94070; J7674

== ENCOUNTER → 2023-05-14 | Outpatient (CLI) | payer BC ==
[~2023-05-14] MED LIST changes: -METHACHOLINE KIT INH ONE
== END ==
LOC: M RAD 07:15
PROVIDERS: ATTEND Physician Assistant
DX: Z12.2 Encounter for screening for malignant neoplasm of respiratory organs (principal); F17.211 Nicotine dependence, cigarettes, in remission; J98.4 Other disorders of lung

== ENCOUNTER → 2024-11-24 | Outpatient (REF) | payer BC | LOC: M SFHCPLAZ 10:07 | PROVIDERS: ATTEND Physician Assistant Medical | DX: R30.0 Dysuria (principal) ==

== ENCOUNTER → 2024-11-26 | Outpatient (REF) | payer BC ==
[2024-11-26 17:37] LABS: HEMATOCRIT 40.7 % (36.0-47.0); HEMOGLOBIN 13.5 g/dl (12.0-15.5); MEAN CORPUSCULAR HEMOGLOBIN 30.5 pg (27.0-33.0); MEAN CORPUSCULAR HGB CONC 33.2 g/dl (32.0-36.5); MEAN CORPUSCULAR VOLUME 91.9 fl (80.0-96.0); PLATELET COUNT, AUTOMATED 264 10^3/uL (150-450); RED BLOOD COUNT 4.43 10^6/uL (4.00-5.40); WHITE BLOOD COUNT 7.3 10^3/uL (4.0-10.0)
[2024-11-26 17:57] LABS: LIPASE 34 U/L (12-53)
[2024-11-26 18:00] LABS: ALBUMIN 4.1 G/DL (3.2-5.2); ALKALINE PHOSPHATASE 82 U/L (35-104); ALT/SGPT 44 U/L (7.0-40); AST/SGOT 25 U/L (<34); BILIRUBIN,TOTAL 0.5 MG/DL (0.3-1.2); BLOOD UREA NITROGEN 14 MG/DL (9-23); CARBON DIOXIDE LEVEL 29 MMOL/L (20-31); CHLORIDE LEVEL 105 MMOL/L (98-107); CREATININE FOR GFR 0.72 MG/DL (0.55-1.30); GLOMERULAR FILTRATION RATE > 60.0 (>45); GLUCOSE, FASTING 70 MG/DL (74-106); POTASSIUM SERUM 4.2 MMOL/L (3.5-5.1); SODIUM LEVEL 142 MMOL/L (136-145); TOTAL PROTEIN 6.9 G/DL (5.7-8.2)
== END ==
LOC: M SFHCPLAZ 11:11
PROVIDERS: ATTEND Physician Assistant Medical
DX: R31.9 Hematuria, unspecified (principal)

== ENCOUNTER → 2024-11-27 | Outpatient (CLI) | payer BC | LOC: M RAD 08:36 | PROVIDERS: ATTEND Physician Assistant Medical | DX: K76.0 Fatty (change of) liver, not elsewhere classified (principal); M47.816 Spondylosis without myelopathy or radiculopathy, lumbar region; R31.9 Hematuria, unspecified ==

== ENCOUNTER → 2024-12-29 | Outpatient (CLI) | payer BC | LOC: M RAD 11:53 | PROVIDERS: ATTEND Physician Assistant | DX: Z12.2 Encounter for screening for malignant neoplasm of respiratory organs (principal); F17.211 Nicotine dependence, cigarettes, in remission; J47.9 Bronchiectasis, uncomplicated; I70.0 Atherosclerosis of aorta; K76.0 Fatty (change of) liver, not elsewhere classified ==

== ENCOUNTER → 2025-01-05 | Outpatient (CLI) | payer BC ==
[2025-01-05 15:20] LABS: AMYLASE 68 U/L (30-118)
[2025-01-05 15:21] LABS: ALKALINE PHOSPHATASE 87 U/L (35-104); ALT/SGPT 40 U/L (7.0-40); AST/SGOT 28 U/L (<34); BILIRUBIN,TOTAL 0.3 MG/DL (0.3-1.2); BLOOD UREA NITROGEN 12 MG/DL (9-23); CALCIUM LEVEL 8.7 MG/DL (8.3-10.6); CARBON DIOXIDE LEVEL 25 MMOL/L (20-31); CHLORIDE LEVEL 107 MMOL/L (98-107); CREATININE FOR GFR 0.62 MG/DL (0.55-1.30); GLOMERULAR FILTRATION RATE > 90.0 (>45); GLUCOSE, FASTING 92 MG/DL (74-106); POTASSIUM SERUM 4.1 MMOL/L (3.5-5.1); SODIUM LEVEL 142 MMOL/L (136-145); TOTAL PROTEIN 6.5 G/DL (5.7-8.2)
[2025-01-05 15:30] LABS: APPEARANCE, URINE CLEAR (CLEAR); BACTERIA, URINE AUTO NEGATIVE (NEGATIVE); BILIRUBIN, URINE AUTO NEGATIVE (NEGATIVE); BLOOD, URINE BLOOD NEGATIVE (NEGATIVE); COLOR, URINE YELLOW (YELLOW); GLUCOSE, URINE (UA) AUTO NEGATIVE (NEGATIVE); KETONE, URINE AUTO NEGATIVE (NEGATIVE); LEUKOCYTE ESTERASE, URINE AUTO NEGATIVE (NEGATIVE); MUCUS, URINE SMALL (NEGATIVE); NITRITE, URINE AUTO NEGATIVE (NEGATIVE); PROTEIN, URINE AUTO NEGATIVE (NEGATIVE); RBC, URINE AUTO 1 /HPF (0-3); SPECIFIC GRAVITY URINE AUTO 1.016 (1.002-1.035); SQUAMOUS EPITHELIAL CELL UR AU 2 /HPF (0-6); UROBILINOGEN, URINE AUTO 0.2 mg/dL (0.0-2.0); WBC, URINE AUTO 1 /HPF (0-3)
== END ==
LOC: M PLALAB 12:37
PROVIDERS: ATTEND Student in an Organized Health Care Education/Training Program
DX: R10.11 Right upper quadrant pain (principal)

== ENCOUNTER → 2025-01-21 | Outpatient (CLI) | payer BC ==
[~2025-01-21] MED LIST changes: +GASTROGRAFIN SOLUTION 30ML As Ordered ONE; +ISOVUE-370 76% 100ML VIAL As Ordered ONE
== END ==
LOC: M RAD 09:34
PROVIDERS: ATTEND Physician Assistant
DX: K62.5 Hemorrhage of anus and rectum (principal); R10.30 Lower abdominal pain, unspecified; K57.90 Diverticulosis of intestine, part unspecified, without perforation or abscess without bleeding; I70.0 Atherosclerosis of aorta; K40.90 Unilateral inguinal hernia, without obstruction or gangrene, not specified as recurrent

== ENCOUNTER 2025-05-14 08:28 | Day surgery (SDC) | payer BC ==
[~2025-05-14] VITALS: Ht 167.6 cm; Wt 85.8 kg
[~2025-05-14 08:28] MED LIST changes: +BIOT5CAP9 PO; -BIOTCAP PO; -GASTROGRAFIN SOLUTION 30ML As Ordered ONE; -ISOVUE-370 76% 100ML VIAL As Ordered ONE
[2025-05-14 11:30] VITALS: BP 125/62; TEMP 96.9; O2SAT 96
== END 2025-05-14 11:35 | disposition home or self-care (01) ==
LOC: M OPP 08:28
PROVIDERS: ATTEND Surgery
DX: K63.5 Polyp of colon (principal); K57.30 Diverticulosis of large intestine without perforation or abscess without bleeding; K64.2 Third degree hemorrhoids; K62.5 Hemorrhage of anus and rectum; K30 Functional dyspepsia
CPT/HCPCS: 43235; 45385; 88305; J3010